=== PATIENT | female | born 1985 | race Asian ===

== ENCOUNTER 2017-10-29 19:06 | Emergency (ER) | payer OTHER ==
[~2017-10-29] VITALS: Ht 165.1 cm; Wt 89.8 kg
[~2017-10-29 19:06] MED LIST: ADIPEX PO; HYDR25TA60 PO
[2017-10-29 19:53] LABS: PLATELET COUNT 310 K/uL (152-353)
[2017-10-29 20:01] LABS: POTASSIUM 2.9 mmol/L (3.6-5.2)
[2017-10-29 21:15] VITALS: BP 145/89
== END 2017-10-29 21:15 | disposition home or self-care (01) ==
LOC: ED 19:06
DX: S90.862A Insect bite (nonvenomous), left foot, initial encounter (principal); L08.9 Local infection of the skin and subcutaneous tissue, unspecified; W57.XXXA Bitten or stung by nonvenomous insect and other nonvenomous arthropods, initial encounter
CPT/HCPCS: 36415; 80053; 85027; 99283